=== PATIENT | female | born 1940 | race Caucasian/White ===

== ENCOUNTER → 2024-03-07 | Outpatient (CLI) | payer MEDICARE, BC ==
[2024-03-07 19:43] LABS: HCT 39.5 % (37.2-46.3); HGB 12.4 g/dL (12.0-15.0); MCHC 31.4 g/dL (32.0-37.0); MCV 92.3 FL (80.0-97.0); Mean Platelet Volume 10.6 FL (9.5-12.2); NRBC Per 100 WBC 0 X 10*3/uL (0.00-0.01); Platelet Count 140 X 10*3/uL (140-440); RBC 4.28 X 10*6/uL (4.10-5.20); RDW 12.9 % (11.5-14.5); WBC 6.64 X 10*3/uL (4.50-10.00)
[2024-03-07 20:06] LABS: ALT 13 U/L (8-44); AST 32 U/L (13-35); Albumin 3.9 g/dL (3.8-4.9); Albumin/Globulin Ratio 1.86 Ratio (1.60-3.17); Alkaline Phosphatase 46 U/L (41-126); BUN/Creat Ratio 14.46 Ratio (12.00-20.00); Blood Urea Nitrogen 18.8 mg/dL (9.0-27.0); Calcium 9.7 mg/dL (8.7-10.3); Carbon Dioxide 27.1 mmol/L (21.6-31.8); Chloride 102 mmol/L (96-109); Globulin 2.1 g/dL (1.6-3.3); Glucose 166 mg/dL (70-110); Potassium 3.8 mmol/L (3.5-5.5); Sodium 140 mmol/L (135-145); Total Bilirubin 0.6 mg/dL (0.3-1.2)
== END | disposition home or self-care (01) ==
LOC: LABWHC1 13:37
PROVIDERS: ATTEND Internal Medicine Interventional Cardiology
DX: I47.19 Other supraventricular tachycardia (principal)
CPT/HCPCS: 36415; 80053; 84443; 85027

== ENCOUNTER 2024-07-08 14:43 | Emergency (ER) | payer BC, MEDICARE ==
--- NOTE | 2024-07-08 15:21 | ED ---
General Adult HPI - General Chief complaint: Head Injury Stated complaint: Fall on thinners-head injury Time Seen by Provider: 07/08/24 14:49 Source: patient, RN notes reviewed Mode of arrival: wheelchair Limitations: no limitations - History of Present Illness Initial comments: 83-year-old female presents to the emergency department for evaluation of fall with head injury. The patient took a fall today hitting her head on an end table. She did not lose consciousness. She is on blood thinners. She denies any other injury. She has had a tetanus vaccine within the past 5 years. She is able to ambulate. She typically uses a walker at home. - Related Data Home Medications Medication Instructions Recorded Confirmed ALPRAZolam [Xanax] 0.25 mg PO TID PRN 07/27/15 07/27/15 Aspirin [Adult Low Dose Aspirin EC] 81 mg PO DAILY 07/27/15 07/27/15 Citalopram Hydrobromide [CeleXA] 10 mg PO DAILY 07/27/15 07/27/15 Ergocalciferol (Vitamin D2) 50,000 unit PO Q14D 07/27/15 07/27/15 [Drisdol] Fenofibrate 160 mg PO DAILY 07/27/15 07/27/15 Furosemide [Lasix] 20 mg PO DAILY 07/27/15 07/27/15 Gabapentin [Neurontin] 100 mg PO HS 07/27/15 07/27/15 Metoprolol Tartrate 25 mg PO BID 07/27/15 07/27/15 Pravastatin Sodium [Pravachol] 80 mg PO HS 07/27/15 07/27/15 Sennosides [Senokot] 8.6 mg PO DAILY PRN 07/27/15 07/27/15 Temazepam [Restoril] 15 mg PO HS PRN 07/27/15 07/27/15 traMADol HCL [Ultram] 50 mg PO TID PRN 07/27/15 07/27/15 Allergies Allergy/AdvReac Type Severity Reaction Status Date / Time seafood Allergy Dyspnea Uncoded 07/08/24 14:52 Review of Systems ROS Statement: Those systems with pertinent positive or pertinent negative responses have been documented in the HPI. ROS Other: All systems not noted in ROS Statement are negative. Past Medical History Past Medical History: Asthma, Cancer, Hyperlipidemia, Skin Disorder Additional Past Medical History / Comment(s): cluster migraine headaches, varicose veins, psoriasis, hx mar skylar syndrome, melanoma rt eye History of Any Multi-Drug Resistant Organisms: None Reported Past Surgical History: Cardiac Valve Replacement, Heart Catheterization Additional Past Surgical History / Comment(s): aortic and mitral valve replacements, melanoma rt eye (prosthesis rt eye), Past Anesthesia/Blood Transfusion Reactions: No Reported Reaction Past Psychological History: Anxiety, Panic Disorder Past Alcohol Use History: None Reported Past Drug Use History: None Reported - Past Family History Mother Family Medical History: Cancer Additional Family Medical History / Comment(s): cervical,breast General Exam Limitations: no limitations General appearance: alert, in no apparent distress Head exam: Present: other (Posterior scalp hematoma with overlying abrasion and laceration) Eye exam: Present: normal appearance, PERRL, EOMI. Absent: scleral icterus, conjunctival injection, periorbital swelling ENT exam: Present: normal exam, mucous membranes moist, TM's normal bilaterally, normal external ear exam Neck exam: Present: normal inspection, full ROM. Absent: tenderness, meningismus, lymphadenopathy Respiratory exam: Present: normal lung sounds bilaterally. Absent: respiratory distress, wheezes, rales, rhonchi, stridor Cardiovascular Exam: Present: regular rate, normal rhythm, normal heart sounds. Absent: systolic murmur, diastolic murmur, rubs, gallop, clicks Extremities exam: Present: normal inspection, full ROM, normal capillary refill. Absent: tenderness, pedal edema, joint swelling, calf tenderness Back exam: Present: normal inspection Neurological exam: Present: alert, oriented X3, CN II-XII intact Psychiatric exam: Present: normal affect, normal mood Skin exam: Present: warm, dry, normal color, abrasion, other. Absent: intact, rash Course Vital Signs 07/08/24 07/08/24 07/08/24 14:48 15:48 17:15 Temperature 97.9 F 98.1 F 98.0 F Pulse Rate 83 75 72 Respiratory 18 20 18 Rate Blood Pressure 134/71 126/79 O2 Sat by Pulse 97 98 99 Oximetry Procedures - Laceration Laceration #1 Consent Obtained: verbal consent Indication: laceration Site: scalp Size (cm): 1 Description: linear Depth: simple, single layer Type of Sutures: other ([place]) Size of Sutures: other Number of Sutures: 3 Technique: other ([place]) Patient Tolerated Procedure: well, no complications Medical Decision Making - Medical Decision Making Was pt. sent in by a medical professional or institution (, KELSIE, SAVINGS COUNSELOR, urgent care, hospital, or halfway...) When possible be specific @ -No Did you speak to anyone other than the patient for history (EMS, parent, family, police, friend...)? What history was obtained from this source @ -Patient's provided some history of his patient Did you review nursing and triage notes (agree or disagree)? Why? @ -I reviewed and agree with nursing and triage notes Were old charts reviewed (outside hosp., previous admission, EMS record, old EKG, old radiological studies, urgent care reports/EKG's, halfway records)? Report findings @ -No old charts were reviewed Differential Diagnosis (chest pain, altered mental status, abdominal pain women, abdominal pain men, vaginal bleeding, weakness, fever, dyspnea, syncope, headache, dizziness, GI bleed, back pain, seizure, CVA, palpatations, mental health, musculoskeletal)? @ -Fall, head injury, intracranial hemorrhage, laceration, abrasion, this list is not all inclusive EKG interpreted by me (3pts min.). @ -None X-rays interpreted by me (1pt min.). @ -None done CT interpreted by me (1pt min.). @ -CT of the brain and C-spine revealed no evidence of acute intracranial process, no acute C-spine fracture or traumatic malalignment U/S interpreted by me (1pt. min.). @ -None done What testing was considered but not performed or refused? (CT, X-rays, U/S, labs)? Why? @ -None What meds were considered but not given or refused? Why? @ -None Did you discuss the management of the patient with other professionals (professionals i.e. , KELSIE, SAVINGS COUNSELOR, lab, RT, psych nurse, social service director, chief wharfinger, teacher, bsa/aml compliance officer, case coordinator)? Give summary @ -No Was smoking cessation discussed for >3mins.? @ -No Was critical care preformed (if so, how long)? @ -No Were there social determinants of health that impacted care today? How? (Homelessness, low income, unemployed, alcoholism, drug addiction, t ransportation, low edu. Level, literacy, decrease access to med. care, halfway, rehab)? @ -No Was there de-escalation of care discussed even if they declined (Discuss DNR or withdrawal of care, Hospice)? DNR status @ -No What co-morbidities impacted this encounter? (DM, HTN, Smoking, COPD, CAD, Cancer, CVA, ARF, Chemo, Hep., AIDS, mental health diagnosis, sleep apnea, morbid obesity)? @ -None Was patient admitted / discharged? Hospital course, mention meds given and route, prescriptions, significant lab abnormalities, going to OR and other pertinent info. @ -Discharge. Patient presented the emergency department for fall with head injury on blood thinners. The patient was called as a code coag in triage. Patient underwent CT of the brain and C-spine revealing no acute intracranial process, no acute C-spine fracture or traumatic malalignment. Patient has a laceration to the posterior scalp which was cleaned and repaired with jackie. Advised on wound care and removal time. The patient and her understand and agree with plan. Patient stable at time of discharge. Case discussed with Dr. Hernandez Undiagnosed new problem with uncertain prognosis? @ -No Drug Therapy requiring intensive monitoring for toxicity (Heparin, Nitro, Insulin, Cardizem)? @ -No Were any procedures done? @ -No Diagnosis/symptom? @ -Fall, head injury, laceration Acute, or Chronic, or Acute on Chronic? @ -Acute Uncomplicated (without systemic symptoms) or Complicated (systemic symptoms)? @ -Uncomplicated Side effects of treatment? @ -No Exacerbation, Progression, or Severe Exacerbation? @ -No Poses a threat to life or bodily function? How? (Chest pain, [place], MA, pneumonia, PE, COPD, DKA, ARF, appy, cholecystitis, CVA, Diverticulitis, Homicidal, Suicidal, threat to staff... and all critical care pts) @ -No Disposition Clinical Impression: Fall, Scalp hematoma, Laceration Disposition: HOME SELF-CARE Condition: Stable Instructions (If sedation given, give patient instructions): Concussion (ED), Staple Care (ED) Additional Instructions: Please follow-up with your doctor. Return to the emergency department for new or worsening symptoms. Is patient prescribed a controlled substance at d/c from ED?: No Referrals: Larry Lopez MD [Primary Care Provider] - 1-2 days
--- NOTE | 2024-07-08 15:43 | CT ---
EXAMINATION TYPE: CT brain cspine wo con CT DLP: 1345.6 mGycm, Automated exposure control for dose reduction was used. DATE OF EXAM: 07/08/2024 3:29 PM COMPARISON: None.. CLINICAL INDICATION:Female, 83 years old with history of Fall head trauma blood thinners; Fall., pain TECHNIQUE: Brain: Multiple axial CT images of the brain were obtained without IV contrast. Cspine: Axial CT images from the skull base to the inferior aspect of T2 we obtained without intraven ous contrast. Coronal and sagittal reformatted images were also reviewed. FINDINGS: Brain: Extra-axial spaces: No abnormal extra-axial fluid collections. Ventricular system: Within normal limits Cerebral parenchyma: Cerebral atrophy. No acute intraparenchymal hemorrhage or mass effect. The mckeon -white junction is well differentiated. Scattered hypoattenuating areas are seen within the periventr icular white matter. Nonspecific bilateral basal ganglia calcifications. Cerebellum: Unremarkable. Mass effect: No evidence of midline shift. Intracranial vasculature: Atherosclerotic calcifications of the intracranial vessels. Soft tissues: Small right posterior parietal scalp hematoma measuring up to 6 mm in thickness. Calvarium/osseous structures: No depressed skull fracture. Paranasal sinuses and mastoid air cells: Clear. Visualized orbits: Left aphakia. Postsurgical changes with right globe prosthesis. Cervical spine: Fracture: None. Osseous structures: Multilevel degenerative disc disease changes with endplate spurring and disc oste ophyte complex's. Multilevel facet arthropathy. Sternotomy wires. Vertebral alignment: Degenerative grade 1 anterolisthesis of C7 on T1. Spinal canal/Neural Foramina: Disc osteophyte complexes at C3-C4, C4-C5, C5-C6, and C6-C7 with at [address] mild spinal canal stenosis. Pannus formation involving C1-C2. Facet joint uncovertebral joint arth ropathy scattered throughout the cervical spine with varying degrees of neural foraminal stenosis. Neck soft tissues: Prevertebral soft tissues are within normal limits. Other: The airway is patent. The lung apices are clear. Bilateral carotid bulb calcifications with ri ght sided retroperitoneal course. Aneurysmal dilatation of the visualized ascending thoracic aorta me asuring up to 4.3 cm. Bovine aortic arch. IMPRESSION: 1. No acute intracranial process. 2. Nonspecific white matter changes, likely secondary to chronic small vessel ischemic disease. 3. Acute small right posterior parietal scalp hematoma. 4. No evidence of cervical spine fracture. 5. Moderate multilevel degenerative disc disease. 6. Ascending thoracic aortic aneurysm measuring up to 4.3 cm. [facility], , 07/08/2024 3:41 PM
[2024-07-08 17:16] VITALS: BP 126/79; PULSE 72; RESP 18; TEMP 98
== END 2024-07-08 14:51 | disposition home or self-care (01) ==
LOC: EC 14:43
DX: S01.01XA Laceration without foreign body of scalp, initial encounter (principal); Z79.82 Long term (current) use of aspirin; Z91.013 Allergy to seafood; W18.30XA Fall on same level, unspecified, initial encounter
CPT/HCPCS: 12001; 70450; 72125; 99283

== ENCOUNTER 2024-09-18 14:07 | Inpatient (IN) | payer MEDICARE ==
--- NOTE | 2024-09-18 14:38 | ED ---
Arrhythmia/Palpitations HPI - General Chief Complaint: Arrhythmia/Palpitations Stated Complaint: Abd Labs Time Seen by Provider: 09/18/24 14:11 Source: patient, family, RN notes reviewed, old records reviewed Mode of arrival: wheelchair Limitations: no limitations - History of Present Illness Initial Comments: This is a 84-year-old female to ER with chest pain and shortness of breath. Patient is sent in by primary care where she went for similar symptoms, patient was found to have severely elevated heart rate and sent to the ER, patient presents by EMS for elevated heart rate feeling lightheaded dizzy and weak, without current chest pain does complain of shortness of breath feels like her heart is racing MD Complaint: rapid heart beat, "heart racing", palpitations, atrial fibrillation -: unknown Context: occurred during rest Arrhythmia History: atrial fibrillation Associated Symptoms: chest pain, shortness of breath, near-syncope Treatments Prior to Arrival: other (0) - Related Data Home Medications Medication Instructions Recorded Confirmed Citalopram Hydrobromide [CeleXA] 10 mg PO DAILY 07/27/15 09/18/24 Fenofibrate 160 mg PO DAILY 07/27/15 09/18/24 Furosemide [Lasix] 20 mg PO BID 07/27/15 09/18/24 Metoprolol Tartrate 25 mg PO BID 07/27/15 09/18/24 Pravastatin Sodium [Pravachol] 80 mg PO HS 07/27/15 09/18/24 Apixaban [Eliquis] 2.5 mg PO BID 09/18/24 09/18/24 Pantoprazole Sodium [Protonix] 40 mg PO DAILY 09/18/24 09/18/24 Potassium Chloride [Klor-Con M10] 10 meq PO DAILY 09/18/24 09/18/24 Tolterodine ER [Detrol LA] 4 mg PO DAILY 09/18/24 09/18/24 allopurinoL 100 mg PO DAILY 09/18/24 09/18/24 traZODone HCL 100 mg PO HS 09/18/24 09/18/24 Allergies Allergy/AdvReac Type Severity Reaction Status Date / Time seafood Allergy Dyspnea Uncoded 09/18/24 17:16 Review of Systems ROS Statement: Those systems with pertinent positive or pertinent negative responses have been documented in the HPI. ROS Other: All systems not noted in ROS Statement are negative. Past Medical History Past Medical History: Asthma, Cancer, Hyperlipidemia, Skin Disorder Additional Past Medical History / Comment(s): cluster migraine headaches, varicose veins, psoriasis, hx mar skylar syndrome, melanoma rt eye History of Any Multi-Drug Resistant Organisms: None Reported Past Surgical History: Cardiac Valve Replacement, Heart Catheterization Additional Past Surgical History / Comment(s): aortic and mitral valve replacements, melanoma rt eye (prosthesis rt eye), Past Anesthesia/Blood Transfusion Reactions: No Reported Reaction Past Psychological History: Anxiety, Panic Disorder Smoking Status: Never smoker Past Alcohol Use History: None Reported Past Drug Use History: None Reported - Past Family History Mother Family Medical History: Cancer Additional Family Medical History / Comment(s): cervical,breast General Exam Limitations: no limitations General appearance: alert, in no apparent distress Head exam: Present: atraumatic, normocephalic, normal inspection Eye exam: Present: normal appearance, PERRL, EOMI. Absent: scleral icterus, conjunctival injection, periorbital swelling ENT exam: Present: normal exam, mucous membranes moist Neck exam: Present: normal inspection. Absent: tenderness, meningismus, lymphadenopathy Respiratory exam: Present: normal lung sounds bilaterally. Absent: respiratory distress, wheezes, rales, rhonchi, stridor Cardiovascular Exam: Present: tachycardia, irregular rhythm, normal heart sounds. Absent: systolic murmur, diastolic murmur, rubs, gallop, clicks GI/Abdominal exam: Present: soft, normal bowel sounds. Absent: distended, tenderness, guarding, rebound, rigid Extremities exam: Present: normal inspection, full ROM, normal capillary refill. Absent: tenderness, pedal edema, joint swelling, calf tenderness Back exam: Present: normal inspection Neurological exam: Present: alert, oriented X3, CN II-XII intact Psychiatric exam: Present: normal affect, normal mood Skin exam: Present: warm, dry, intact, normal color. Absent: rash Course Vital Signs 09/18/24 09/18/24 09/18/24 14:12 14:38 14:47 Temperature 97.3 F L Pulse Rate 40 L 149 H Pulse Rate [ 149 H Cloth Dye Range Operator ] Respiratory 18 Rate Blood Pressure 90/37 85/62 O2 Sat by Pulse 95 93 L Oximetry 09/18/24 09/18/24 09/18/24 15:40 16:18 16:30 Temperature Pulse Rate 146 H 146 H 146 H Pulse Rate [ Cloth Dye Range Operator ] Respiratory 17 Rate Blood Pressure 83/60 84/63 91/63 O2 Sat by Pulse 94 L 95 Oximetry 09/18/24 09/18/24 09/18/24 16:49 17:00 17:30 Temperature Pulse Rate 115 H 107 H 95 Pulse Rate [ Cloth Dye Range Operator ] Respiratory 17 Rate Blood Pressure 96/66 88/66 97/60 O2 Sat by Pulse 92 L 94 L Oximetry 09/18/24 09/18/24 09/18/24 18:00 18:45 20:52 Temperature 98.6 F Pulse Rate 70 69 69 Pulse Rate [ Cloth Dye Range Operator ] Respiratory 18 17 19 Rate Blood Pressure 98/57 110/49 94/66 O2 Sat by Pulse 93 L 93 L 93 L Oximetry - Reevaluation(s) Reevaluation #1: Medical records reviewed Reevaluation #2: Patient's symptoms mildly improving in the ER blood pressure and heart rate Reevaluation #3: Patient informed results questions answered Reevaluation #4: Was pt. sent in by a medical professional or institution (, PA, INSTRUMENT TECHNICIAN HELPER, urgent care, hospital, or halfway...) When possible be specific @ -Yes patient was sent by PCP Did you speak to anyone other than the patient for history (EMS, parent, family, police, friend...)? What history was obtained from this source @ -No Did you review nursing and triage notes (agree or disagree)? Why? @ -I reviewed and agree with nursing and triage notes Were old charts reviewed (outside hosp., previous admission, EMS record, old EKG, old radiological studies, urgent care reports/EKG's, halfway records)? Report findings @ -Yes old charts reviewed and noncontributory Differential Diagnosis (chest pain, altered mental status, abdominal pain women, abdominal pain men, vaginal bleeding, weakness, fever, dyspnea, syncope, headache, dizziness, GI bleed, back pain, seizure, CVA, palpatations, mental hea lth, musculoskeletal)? @ -Yes as above EKG interpreted by me (3pts min.). @ -As above X-rays interpreted by me (1pt min.). @ -None CT interpreted by me (1pt min.). @ -None U/S interpreted by me (1pt. min.). @ -None done What testing was considered but not performed or refused? (CT, X-rays, U/S, lab s)? Why? @ -None What meds were considered but not given or refused? Why? @ -None Did you discuss the management of the patient with other professionals (professionals i.e. , PA, INSTRUMENT TECHNICIAN HELPER, lab, RT, psych nurse, social work therapist, working foreman, teacher, pharmaceutical officer, therapeutic case manager)? Give summary @ -No Was smoking cessation discussed for >3mins.? @ -No Was critical care preformed (if so, how long)? @ -Yes31 Were there social determinants of health that impacted care today? How? (Homelessness, low income, unemployed, alcoholism, drug addiction, transportation, low edu. Level, literacy, decrease access to med. care, correction, rehab)? @ -No Was there de-escalation of care discussed even if they declined (Discuss DNR or withdrawal of care, Hospice)? DNR status @ -No What co-morbidities impacted this encounter? (DM, HTN, Smoking, COPD, CAD, Cancer, CVA, ARF, Chemo, Hep., AIDS, mental health diagnosis, sleep apnea, morbid obesity)? @ -None Was patient admitted / discharged? Hospital course, mention meds given and route, prescriptions, significant lab abnormalities, going to OR and other pertinent info. @ - 84 female sent from PCP for elevated heart rate, patient found in A-fib with RVR, will admit for rate control cardiology consult evaluation, treatment. Admitted Undiagnosed new problem with uncertain prognosis? @ -No Drug Therapy requiring intensive monitoring for toxicity (Heparin, Nitro, Insulin, Cardizem)? @ -No Were any procedures done? @ -No Diagnosis/symptom? @ -Atrial fibrillation with RVR, palpitations and chest pain Acute, or Chronic, or Acute on Chronic? @ -Acute Uncomplicated (without systemic symptoms) or Complicated (systemic symptoms)? @ -Complicated Side effects of treatment? @ -No Exacerbation, Progression, or Severe Exacerbation? @ -Exacerbation Poses a threat to life or bodily function? How? (Chest pain, [place], [place], pneumonia, PE, COPD, DKA, ARF, appy, cholecystitis, CVA, Diverticulitis, Homicidal, Suicidal, threat to staff... and all critical care pts) @ -Yes with arrhythmia Reevaluation #5: Differential Palpitations Ventricular arrhythmias, atrial arrhythmias, myocardial infarction, anemia, thyrotoxicosis, electrolyte imbalance, hypokalemia, pulmonary embolism, pulmonary disease, drugs, alcohol, anxiety, stress.... This is not meant to be an all-inclusive list. Differential Weakness: Hypoglycemia, shock, sepsis, hyponatremia, anemia, infection, [place], ETOH, adverse medicine reaction, overdose, stroke, this is not meant to be an all-inclusive list. - Consultations Consultation #1: Spoke w admitting physicians reviewed admit this patient EKG Findings - EKG Comments: EKG Findings:: EKG is sinus tachycardia 150 OK 148 QRS 129 QTc 440 - EKG Results: EKG: interpreted by [facility] Medical Decision Making - Medical Decision Making 84 female sent from PCP for elevated heart rate, patient found in A-fib with RVR , will admit for rate control cardiology consult evaluation, treatment. - Lab Data Result diagrams: 09/20/24 06:19 09/20/24 06:19 Lab Results 09/18/24 09/18/24 09/18/24 Range/Units 14:58 14:58 14:58 WBC 13.28 H (4.50-10.00) 10*3/uL RBC 4.77 (4.10-5.20) 10*6/uL Hgb 15.0 (12.0-15.0) g/dL Hct 43.0 (37.2-46.3) % MCV 90.1 (80.0-97.0) fL MCH 31.4 (27.0-32.0) pg MCHC 34.9 (32.0-37.0) g/dL Plt Count 160 (140-440) 10*3/uL MPV 10.2 (9.5-12.2) fL Immature Gran % (Auto) 0.5 % Neutrophils % 76.3 % Lymphocytes % 15.2 % Monocytes % 6.9 % Eosinophils % 0.6 % Basophils % 0.5 % Immature Gran # 0.07 H (0.00-0.04) 10*3/uL Neutrophils # 10.14 H (1.80-7.70) 10*3/uL Lymphocytes # 2.02 (0.90-5.00) 10*3/uL Monocytes # 0.91 (0.20-1.00) 10*3/uL Eosinophils # 0.08 (0.04-0.35) 10*3/uL Basophils # 0.06 (0.00-0.10) 10*3/uL PT 13.3 H (10.0-12.5) sec INR 1.2 H (<1.2) APTT 24.8 (22.0-30.0) sec Sodium 137 (137-145) mmol/L Potassium 4.4 (3.5-5.1) mmol/L Chloride 102 (98-107) mmol/L Carbon Dioxide 20 L (22-30) mmol/L Anion Gap 15 mmol/L BUN 21 H (7-17) mg/dL Creatinine 1.07 H (0.52-1.04) mg/dL Est GFR (CKD-EPI)AfAm 55 (>60 ml/min/1.73 sqM) Est GFR (CKD-EPI)NonAf 48 (>60 ml/min/1.73 sqM) Glucose 140 H (74-99) mg/dL Lactic Ac Sepsis Rflx Plasma Lactic Acid Rich (0.7-2.0) mmol/L Calcium 10.2 (8.4-10.2) mg/dL Phosphorus 6.2 H (2.5-4.5) mg/dL Magnesium 1.6 (1.6-2.3) mg/dL Total Bilirubin 2.0 H (0.2-1.3) mg/dL AST 50 H (14-36) U/L ALT 18 (4-34) U/L Alkaline Phosphatase 52 (38-126) U/L Troponin I (0.000-0.034) ng/mL NT-Pro-B Natriuret Pep 2260 pg/mL Total Protein 6.5 (6.3-8.2) g/dL Albumin 4.2 (3.5-5.0) g/dL TSH 7.270 H (0.465-4.680) mIU/L Free T4 2.19 (0.78-2.19) ng/dL 09/18/24 09/18/24 09/18/24 Range/Units 14:58 14:58 15:25 WBC (4.50-10.00) 10*3/uL RBC (4.10-5.20) 10*6/uL Hgb (12.0-15.0) g/dL Hct (37.2-46.3) % MCV (80.0-97.0) fL MCH (27.0-32.0) pg MCHC (32.0-37.0) g/dL Plt Count (140-440) 10*3/uL MPV (9.5-12.2) fL Immature Gran % (Auto) % Neutrophils % % Lymphocytes % % Monocytes % % Eosinophils % % Basophils % % Immature Gran # (0.00-0.04) 10*3/uL Neutrophils # (1.80-7.70) 10*3/uL Lymphocytes # (0.90-5.00) 10*3/uL Monocytes # (0.20-1.00) 10*3/uL Eosinophils # (0.04-0.35) 10*3/uL Basophils # (0.00-0.10) 10*3/uL PT (10.0-12.5) sec INR (<1.2) APTT (22.0-30.0) sec Sodium (137-145) mmol/L Potassium (3.5-5.1) mmol/L Chloride (98-107) mmol/L Carbon Dioxide (22-30) mmol/L Anion Gap mmol/L BUN (7-17) mg/dL Creatinine (0.52-1.04) mg/dL Est GFR (CKD-EPI)AfAm (>60 ml/min/1.73 sqM) Est GFR (CKD-EPI)NonAf (>60 ml/min/1.73 sqM) Glucose (74-99) mg/dL Lactic Ac Sepsis Rflx Y Plasma Lactic Acid Rich 3.9 H* (0.7-2.0) mmol/L Calcium (8.4-10.2) mg/dL Phosphorus (2.5-4.5) mg/dL Magnesium (1.6-2.3) mg/dL Total Bilirubin (0.2-1.3) mg/dL AST (14-36) U/L ALT (4-34) U/L Alkaline Phosphatase (38-126) U/L Troponin I 0.019 (0.000-0.034) ng/mL NT-Pro-B Natriuret Pep pg/mL Total Protein (6.3-8.2) g/dL Albumin (3.5-5.0) g/dL TSH (0.465-4.680) mIU/L Free T4 (0.78-2.19) ng/dL - EKG Data -: EKG Interpreted by Me (EKG repeated sinus 70 OK 242 QRS 109 QTc 462) - Radiology Data Radiology results: report reviewed (Chest x-ray is negative for acute disease), image reviewed Critical Care Time Critical Care Time: Yes Total Critical Care Time: 31 Disposition Clinical Impression: Palpitations, Atrial tachycardia, Atrial flutter Disposition: ADMITTED IP TO THIS HOSP Condition: Fair Is patient prescribed a controlled substance at d/c from ED?: No Time of Disposition: 15:30
[2024-09-18] MEDS: SODIUM CHLORIDE 0.9% 1,000 ML IV SCH (14:52)
[2024-09-18] MEDS: SODIUM CHLORIDE 0.9% 1,000 ML IV ONE (14:52)
[2024-09-18] MEDS: MAGNESIUM SULFATE-D5W PMX 1 GM in DEXTROSE/WATER 1 100ML.BAG IVPB ONE ×2 (14:52→17:18)
[2024-09-18 15:04] LABS: Basophils # (A) 0.06 10*3/uL (0.00-0.10); Basophils % (A) 0.5 %; Eosinophils # (A) 0.08 10*3/uL (0.04-0.35); Eosinophils % (A) 0.6 %; HCT 43.0 % (37.2-46.3); HGB 15.0 g/dL (12.0-15.0); Lymphocytes # (A) 2.02 10*3/uL (0.90-5.00); Lymphocytes % (A) 15.2 %; MCH 31.4 pg (27.0-32.0); MCHC 34.9 g/dL (32.0-37.0); MCV 90.1 fL (80.0-97.0); Monocytes # (A) 0.91 10*3/uL (0.20-1.00); Monocytes % (A) 6.9 %; Neutrophils # (A) 10.14 10*3/uL (1.80-7.70); Neutrophils % (A) 76.3 %; Platelet Count 160 10*3/uL (140-440); RBC 4.77 10*6/uL (4.10-5.20); RDW 13.2 % (11.5-14.5); WBC 13.28 10*3/uL (4.50-10.00)
[2024-09-18 15:13] LABS: INR 1.2 (<1.2); Partial Thromboplastin Time 24.8 sec (22.0-30.0); Prothrombin Time 13.3 sec (10.0-12.5)
[2024-09-18 15:21] LABS: ALT 18 U/L (4-34); AST 50 U/L (14-36); African American GFR (CKD) 55 (>60 ml/min/1.73 sqM); Albumin 4.2 g/dL (3.5-5.0); Alkaline Phosphatase 52 U/L (38-126); Anion Gap 15 mmol/L; Blood Urea Nitrogen 21 mg/dL (7-17); Calcium 10.2 mg/dL (8.4-10.2); Carbon Dioxide 20 mmol/L (22-30); Chloride 102 mmol/L (98-107); Glucose 140 mg/dL (74-99); Magnesium 1.6 mg/dL (1.6-2.3); Non-African American GFR(CKD) 48 (>60 ml/min/1.73 sqM); Potassium 4.4 mmol/L (3.5-5.1); Sodium 137 mmol/L (137-145); Total Protein 6.5 g/dL (6.3-8.2)
[2024-09-18 15:29] LABS: NT-Pro-B-Type Natriuretic Pept 2260 pg/mL
[2024-09-18] MEDS ORDERED: ONDANSETRON 4 MG/2 ML VIAL IVP PRN (15:41)
[2024-09-18] MEDS ORDERED: NALOXONE 0.4 MG/ML 1 ML VIAL IV PRN (15:41)
--- NOTE | 2024-09-18 15:58 | XR ---
EXAMINATION TYPE: XR chest 1V portable DATE OF EXAM: 09/18/2024 3:53 PM COMPARISON: None. CLINICAL INDICATION: Female, 83 years old with history of sob, TECHNIQUE: XR chest 1V portable views of the chest are obtained. FINDINGS: Demonstrated are scattered senescent parenchymal change. There is no evidence for focal infiltrate. The heart is enlarged. Hilar and mediastinal structures are within normal limits. Degenerative changes are seen of the dorsal spine. IMPRESSION: 1. Chronic changes without evidence for acute pulmonary disease. [facility], , 09/18/2024 3:55 PM
[2024-09-18 16:22] LABS: T4, Free (Free Thyroxine) 2.19 ng/dL (0.78-2.19)
[2024-09-18] MEDS: METOPROLOL TARTRATE 5 MG/5 ML VIAL IVP STA (16:37)
[2024-09-18] MEDS: PANTOPRAZOLE 40 MG/10 ML VIAL IV SCH (16:37)
[2024-09-18] MEDS ORDERED: HEPARIN SODIUM 1,000 UN/ML (10ML VL) IV PRN (17:01)
[2024-09-18] MEDS: SODIUM CHLORIDE 0.9% 500 ML 500 ML IV ONE ×2 (17:09→18:05)
[2024-09-18 17:21] LABS: Bacteria,Urine Many /hpf; Bilirubin,Urine Negative (Negative); Blood,Urine Trace (Negative); Color,Urine Yellow; Glucose,Urine (UA) Negative (Negative); Hyaline Casts,Urine 5 /lpf (0-2); Ketones,Urine Negative (Negative); Leukocyte Esterase,Urine Large (Negative); Mucus,Urine Rare /hpf; Nitrite,Urine Negative (Negative); PH, Urine 5.5 (5.0-8.0); Protein,Urine Trace (Negative); RBC,Urine 3 /hpf (0-5); Specific Gravity,Urine 1.011 (1.001-1.035); Squamous Epithelial Cell,Urine 8 /hpf (0-4); Urobilinogen,Urine <2.0 mg/dL (<2.0); WBC,Urine 160 /hpf (0-5)
[2024-09-18] MEDS: DILTIAZEM 5 MG/ML 5 ML VIAL IVP STA (17:35)
[2024-09-18] MEDS: DEXTROSE 5%-0.45% NACL 1,000 ML IV ONE (18:06)
[2024-09-18] MEDS: MAGNESIUM OXIDE 400 MG TAB PO STA (18:08)
[2024-09-18] MEDS: HEPARIN SODIUM,PORCINE/D5W 25,000 UNIT in EMPTY BAG 1 BAG IV SCH (18:48)
[2024-09-18] MEDS: HEPARIN SODIUM 1,000 UN/ML (10ML VL) IV ONE (18:50)
--- NOTE | 2024-09-19 01:20 | HP ---
HISTORY AND PHYSICAL CHIEF COMPLAINT: Weakness and diminished p.o. intake. 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 The patient is not eating well. The patient was evaluated in the physician's office and was found to have tachycardia and the patient was referred to [facility]. The EKG showed possible atrial flutter versus atrial fibrillation with a fast ventricular rate. The patient has been admitted for further evaluation and treatment. Wide- complex QRS, tachycardia suspected. PAST MEDICAL HISTORY: History of asthma, hyperlipidemia, history of irregular heartbeat previously postop, rest of the history and chart is noted. HOME MEDICATIONS: Ultram. Doses and rest medications noted. ALLERGIES: Seafood. FAMILY HISTORY: History of cervical cancer. SOCIAL HISTORY: No history of smoking or alcohol. REVIEW OF SYSTEMS: A 14-point review of systems negative except as mentioned earlier. PHYSICAL EXAMINATION: VITAL SIGNS: Pulse is 140, blood pressure 91/67, and respirations 17. HEENT: Conjunctivae normal. CARDIOVASCULAR: She was tachycardic. RESPIRATIONS: Few scattered rhonchi and crackles. ABDOMEN: Soft, nontender. LEGS: No edema. NERVOUS SYSTEM: No focal deficits. LABORATORY DATA: Creatinine is 1.07 and lactic acid 3.9. ASSESSMENT: 1. Tachycardia, possibly atrial flutter fibrillation versus wide-complex QRS tachycardia. 2. History of asthma. 3. Hyperlipidemia. 4. History of cardiac valve replacement, history of cardiac catheterization, history of Jones-Nabil Syndrome, history of anxiety, panic disorder. RECOMMENDATIONS AND DISCUSSION: This 83-year-old woman presented with multiple complex medical issues. We will monitor the patient closely. Continue the current management and symptomatic treatment otherwise Cardiology consultation. Guarded prognosis because of multiple complex medical issues and further recommendations to follow. See orders for details. We will check a TSH and lytes also. MMODL / IJN: [id number] /
[2024-09-19 07:51] LABS: Basophils # (A) 0.03 10*3/uL (0.00-0.10); Basophils % (A) 0.5 %; Eosinophils # (A) 0.05 10*3/uL (0.04-0.35); Eosinophils % (A) 0.8 %; HCT 32.7 % (37.2-46.3); Lymphocytes # (A) 1.65 10*3/uL (0.90-5.00); Lymphocytes % (A) 26.7 %; MCH 31.4 pg (27.0-32.0); MCHC 33.9 g/dL (32.0-37.0); MCV 92.4 fL (80.0-97.0); Monocytes # (A) 0.49 10*3/uL (0.20-1.00); Monocytes % (A) 7.9 %; Neutrophils # (A) 3.93 10*3/uL (1.80-7.70); Neutrophils % (A) 63.5 %; Platelet Count 111 10*3/uL (140-440); RBC 3.54 10*6/uL (4.10-5.20); RDW 13.2 % (11.5-14.5); WBC 6.19 10*3/uL (4.50-10.00)
[2024-09-19 08:27] LABS: HGB 11.1 g/dL (12.0-15.0)
[2024-09-19 09:02] LABS: ALT 20 U/L (4-34); AST 48 U/L (14-36); African American GFR (CKD) 73 (>60 ml/min/1.73 sqM); Albumin 2.6 g/dL (3.5-5.0); Alkaline Phosphatase 36 U/L (38-126); Anion Gap 6 mmol/L; Blood Urea Nitrogen 19 mg/dL (7-17); Calcium 8.8 mg/dL (8.4-10.2); Carbon Dioxide 24 mmol/L (22-30); Chloride 105 mmol/L (98-107); Glucose 107 mg/dL (74-99); Magnesium 2.1 mg/dL (1.6-2.3); Non-African American GFR(CKD) 64 (>60 ml/min/1.73 sqM); Potassium 3.2 mmol/L (3.5-5.1); Sodium 135 mmol/L (137-145); Total Protein 4.7 g/dL (6.3-8.2)
[2024-09-19] MEDS: METOPROLOL TARTRATE 25 MG TAB PO SCH (10:14)
[2024-09-19] MEDS: APIXABAN 2.5 MG TABLET PO SCH (10:15)
[2024-09-19] MEDS: FUROSEMIDE 20 MG TAB PO SCH (10:15)
--- NOTE | 2024-09-19 10:30 | P.CRDCN ---
History of Present Illness Consult date: 09/19/24 Consult reason: atrial fibrillation History of present illness: This is an 83-year-old female patient of Dr. Bates with past medical history of atrial tachycardia, aortic valve replacement and mitral valve replacement, CAD, mixed hyperlipidemia, diabetes mellitus type 2. We have been asked to evaluate the patient for A-fib with RVR. Patient states that she went to her regularly scheduled appointment with Dr. Lopez and was found to be tachycardic in the 150s and was sent into the hospital for further evaluation. Patient's states that he is also concerned as she has not been eating and drinking and has no strength. Blood pressure 91/48, heart rate 80, pulse ox 95% on room air. Patient is status post Cardizem bolus 15 mg IV push, IV Lopressor 5 mg, heparin drip, magnesium replacement, 2 and half liters IV fluid bolus. Patient states that she is feeling better today. -EKG: Atrial tachycardia versus typical atrial flutter 150 bpm, #2 sinus rhythm at 70 bpm. -Chest x-ray: Chronic changes without acute process. -Laboratory studies: Troponin 0.019, 0.036, 0.096. WBC initially 13.2 on repeat 6.1, hemoglobin 9.1, sodium 135, potassium 3.2, BUN 19 creatinine 0.84. proBNP 2260. TSH 7.27 with normal free T4 of 2.19. Urinalysis possible UTI. -Home cardiac medications: Eliquis 2.5 mg twice daily, fenofibrate 160 mg daily, Lasix 20 mg twice daily, metoprolol tartrate 25 mg twice daily, potassium chloride 10 mill equivalents daily, pravastatin 80 mg at bedtime. -Cardiac catheterization performed 2011 revealed EF 42%, 40% proximal RCA, 4+ aortic and mitral valve regurgitation. -Cardiovascular surgery tissue AVR and tissue MVR 2011 -Echocardiogram performed 03/23/2024 revealed EF 52%, moderate TR, bioprosthetic aortic and mitral valve replacement. -Event monitor February 2024 revealed sinus rhythm with episodes of atrial tachycardia 2:1. -Lexiscan stress test performed 2022 revealed normal EF, normal study. Review Of Systems: At the time of my exam: CONSTITUTIONAL: Denies fever or chills. HEENT: Denies blurred vision, vision changes, or eye pain. Denies hemoptysis CARDIOVASCULAR: Denies chest pain. Denies orthopnea. Denies PND. Denies palpitations RESPIRATORY: Denies shortness of breath. GASTROINTESTINAL: Denies abdominal pain. Denies nausea or vomiting. HEMATOLOGIC: Denies bleeding disorders. GENITOURINARY: Denies any blood in urine. SKIN: Denies puritis. Denies rash. Physical examination: Gen: This is an 83-year-old female in no acute distress VS: reviewed HEENT: Head is atraumatic, normocephalic. Pupils equal, round. Sclerae is anicteric. NECK: Supple. No JVD. LUNGS: Clear to auscultation. No wheezes or rhonchi. No intercostal retractions. HEART: Regular rate and rhythm. 4/6 systolic ejection murmur at the right sternal border and 2/6 systolic murmur at the apex. ABDOMEN: Soft No tenderness. EXTREMITIES: No pedal edema. No calf tenderness. NEUROLOGICAL: Patient is awake, alert and oriented x3. Assessment: Atrial tachycardia versus typical atrial flutter Elevated troponin secondary to tachycardia UTI Aortic valve replacement and mitral valve replacement CAD, nonobstructive Mixed hyperlipidemia Diabetes mellitus type 2 Plan: Resume patient's home cardiac medications Discontinue heparin drip and resume Eliquis No need to repeat echocardiogram as this was done in March Continue telemetry monitoring Further recommendations to follow based upon clinical course Thank you kindly for this consultation. Nurse practitioner note has been reviewed, I agree with documented findings and plan of care. Patient was seen and examined. Past Medical History Past Medical History: Asthma, Cancer, Hyperlipidemia, Skin Disorder Additional Past Medical History / Comment(s): cluster migraine headaches, varicose veins, psoriasis, hx mar skylar syndrome, melanoma rt eye History of Any Multi-Drug Resistant Organisms: None Reported Past Surgical History: Cardiac Valve Replacement, Heart Catheterization Additional Past Surgical History / Comment(s): aortic and mitral valve replacements, melanoma rt eye (prosthesis rt eye), Past Anesthesia/Blood Transfusion Reactions: No Reported Reaction Past Psychological History: Anxiety, Panic Disorder Smoking Status: Never smoker Past Alcohol Use History: None Reported Past Drug Use History: None Reported - Past Family History Mother Family Medical History: Cancer Additional Family Medical History / Comment(s): cervical,breast Medications and Allergies Home Medications Medication Instructions Recorded Confirmed Type Citalopram Hydrobromide [CeleXA] 10 mg PO DAILY 07/27/15 09/18/24 History Fenofibrate 160 mg PO DAILY 07/27/15 09/18/24 History Furosemide [Lasix] 20 mg PO BID 07/27/15 09/18/24 History Metoprolol Tartrate 25 mg PO BID 07/27/15 09/18/24 History Pravastatin Sodium [Pravachol] 80 mg PO HS 07/27/15 09/18/24 History Apixaban [Eliquis] 2.5 mg PO BID 09/18/24 09/18/24 History Pantoprazole Sodium [Protonix] 40 mg PO DAILY 09/18/24 09/18/24 History Potassium Chloride [Klor-Con M10] 10 meq PO DAILY 09/18/24 09/18/24 History Tolterodine ER [Detrol LA] 4 mg PO DAILY 09/18/24 09/18/24 History allopurinoL 100 mg PO DAILY 09/18/24 09/18/24 History traZODone HCL 100 mg PO HS 09/18/24 09/18/24 History Allergies Allergy/AdvReac Type Severity Reaction Status Date / Time seafood Allergy Dyspnea Uncoded 09/18/24 17:16 Physical Exam Vitals: Vital Signs Temp Pulse Pulse Resp BP BP Pulse Ox 09/19/24 03:54 73 18 97/54 95 09/18/24 23:40 73 18 104/61 95 09/18/24 21:28 98.0 F 72 18 126/60 95 09/18/24 20:52 98.6 F 69 19 94/66 93 L 09/18/24 18:45 69 17 110/49 93 L 09/18/24 18:00 70 18 98/57 93 L 09/18/24 17:30 95 17 97/60 94 L 09/18/24 17:00 107 H 88/66 92 L 09/18/24 16:49 115 H 96/66 09/18/24 16:30 146 H 91/63 09/18/24 16:18 146 H 84/63 95 09/18/24 15:40 146 H 17 83/60 94 L 09/18/24 14:47 149 H 85/62 93 L 09/18/24 14:38 149 H 09/18/24 14:12 97.3 F L 40 L 18 90/37 95 Intake and Output 09/18/24 09/19/24 09/19/24 22:59 06:59 14:59 Intake Total 50.841 Balance 50.841 Intake: Intake, IV Titration 50.841 Amount Heparin Sodium,Porcine/ 50.841 D5w 25,000 unit In Empty Bag 1 bag @ 12 UNIT/KG/HR 6.532 mls/hr IV .Q24H [facility] Rx#:[id number] Other: Voiding Method Diaper Diaper # Voids 1 Weight 54.431 kg 67 kg Results 09/19/24 07:25 09/19/24 07:25 Cardiac Enzymes 09/18/24 09/18/24 09/18/24 Range/Units 14:58 14:58 18:17 AST 50 H (14-36) U/L Troponin I 0.019 0.036 H* (0.000-0.034) ng/mL 09/19/24 Range/Units 01:28 AST (14-36) U/L Troponin I 0.096 H* (0.000-0.034) ng/mL Coagulation 09/18/24 09/19/24 Range/Units 14:58 01:28 PT 13.3 H (10.0-12.5) sec APTT 24.8 >200.0 H* (22.0-30.0) sec CBC 09/18/24 Range/Units 14:58 WBC 13.28 H (4.50-10.00) 10*3/uL RBC 4.77 (4.10-5.20) 10*6/uL Hgb 15.0 (12.0-15.0) g/dL Hct 43.0 (37.2-46.3) % Plt Count 160 (140-440) 10*3/uL Comprehensive Metabolic Panel 09/18/24 Range/Units 14:58 Sodium 137 (137-145) mmol/L Potassium 4.4 (3.5-5.1) mmol/L Chloride 102 (98-107) mmol/L Carbon Dioxide 20 L (22-30) mmol/L BUN 21 H (7-17) mg/dL Creatinine 1.07 H (0.52-1.04) mg/dL Glucose 140 H (74-99) mg/dL Calcium 10.2 (8.4-10.2) mg/dL AST 50 H (14-36) U/L ALT 18 (4-34) U/L Alkaline Phosphatase 52 (38-126) U/L Total Protein 6.5 (6.3-8.2) g/dL Albumin 4.2 (3.5-5.0) g/dL Current Medications Generic Name Dose Route Start Last Admin Trade Name Freq PRN Reason Stop Dose Admin Heparin Sodium (Porcine) 0 unit 09/18/24 17:01 Heparin Sodium 1,000 Un/Ml (10ml Vl) IV PER PROTOCOL PRN Low PTT Protocol Heparin Sodium/Dextrose 25,000 250 mls @ 6.532 mls/hr 09/18/24 17:15 09/19/24 04:40 unit/ IV Solution IV 8 unit/kg/hr .Q24H [facility] 4.354 mls/hr Titration Protocol 12 UNIT/KG/HR Ceftriaxone Sodium 2 gm/ 50 mls @ 100 mls/hr 09/18/24 21:00 09/18/24 21:41 Sodium Chloride IVPB 100 mls/hr Q24H [facility] Administration Protocol Naloxone HCl 0.2 mg 09/18/24 15:41 Naloxone 0.4 Mg/Ml 1 Ml Vial IV Q2M PRN Opioid Reversal Ondansetron HCl 4 mg 09/18/24 15:41 Ondansetron 4 Mg/2 Ml Vial IVP Q8HR PRN Nausea And Vomiting Pantoprazole Sodium 40 mg 09/18/24 15:45 09/18/24 16:37 Pantoprazole 40 Mg/10 Ml Vial IV 40 mg DAILY EDEL Administration Intake and Output 09/18/24 09/19/24 09/19/24 22:59 06:59 14:59 Intake Total 50.841 Balance 50.841 Intake: Intake, IV Titration 50.841 Amount Heparin Sodium,Porcine/ 50.841 D5w 25,000 unit In Empty Bag 1 bag @ 12 UNIT/KG/HR 6.532 mls/hr IV .Q24H [facility] Rx#:[id number] Other: Voiding Method Diaper Diaper # Voids 1 Weight 54.431 kg 67 kg 09/18/24 14:58 09/18/24 14:58
--- NOTE | 2024-09-19 11:05 | CA ---
Transthoracic Echo Report Name: Robyn Aj Age: 83 Gender: F : 1940 Exam Date: 09/19/2024 08:57 Exam Location: [facility] Ht (in): Wt (lb): Ordering Physician: Ravin Kellogg MD Attending/Referring Phys: Offset Printer Mejia Rios RDCS Procedure CPT: Indications: afib Cardiac Hx: Technical Quality: Fair Contrast 1: Definity Total Dose (mL): 2 Contrast 2: Total Dose (mL): MEASUREMENTS (Male / Female) Normal Values 2D ECHO LV Diastolic Diameter PLAX 4.6 cm 4.2 - 5.9 / 3.9 - 5.3 cm LV Systolic Diameter PLAX 3.6 cm IVS Diastolic Thickness 0.9 cm 0.6 - 1.0 / 0.6 - 0.9 cm LVPW Diastolic Thickness 0.9 cm 0.6 - 1.0 / 0.6 - 0.9 cm LV Relative Wall Thickness 0.4 RV Internal Dim ED PLAX 1.6 cm LVOT Diameter 1.8 cm LV Diastolic Volume MOD BP 38.1 cm??? 67 - 155 / 56 - 104 cm??? LV Systolic Volume MOD BP 18.0 cm??? 22 - 58 / 19 - 49 cm??? LV Ejection Fraction MOD BP 52.6 % >= 55 % LV Diastolic Volume MOD 4C 33.0 cm??? LV Systolic Volume MOD 4C 15.5 cm??? LV Ejection Fraction MOD 4C 53.0 % LV Diastolic Length 4C 5.8 cm LV Systolic Length 4C 5.1 cm LV Diastolic Volume MOD 2C 36.8 cm??? LV Systolic Volume MOD 2C 15.6 cm??? LV Ejection Fraction MOD 2C 57.6 % LV Diastolic Length 2C 4.8 cm LV Systolic Length 2C 3.8 cm LA Volume 65.9 cm??? 18 - 58 / 22 - 52 cm??? M-MODE Aortic Root Diameter MM 2.6 cm LA Systolic Diameter MM 4.2 cm LA Ao Ratio MM 1.6 AV Cusp Separation MM 0.9 cm DOPPLER AV Peak Velocity 161.4 cm/s AV Peak Gradient 10.4 mmHg AV Mean Velocity 120.3 cm/s AV Mean Gradient 6.3 mmHg AV Velocity Time Integral 38.3 cm AI Peak Velocity 209.9 cm/s AI Peak Gradient 17.6 mmHg AI Pressure Half Time 376.1 ms LVOT Peak Velocity 76.8 cm/s LVOT Peak Gradient 2.4 mmHg LVOT Velocity Time Integral 14.9 cm LVOT Stroke Volume 37.9 cm??? AV Area Cont Eq vti 1.0 cm??? AV Area Cont Eq pk 1.2 cm??? MV Peak Velocity 177.6 cm/s MV Peak Gradient 12.6 mmHg MV Mean Velocity 115.6 cm/s MV Mean Gradient 6.0 mmHg MV Velocity Time Integral 43.2 cm MR Peak Velocity 563.1 cm/s MR Peak Gradient 126.8 mmHg TR Peak Velocity 305.3 cm/s TR Peak Gradient 37.3 mmHg Right Ventricular Systolic Press 40.8 mmHg PI Peak Gradient 27.9 mmHg FINDINGS Left Ventricle Left ventricular ejection fraction is estimated at 55 to 60 %.Normal left ventricular systolic function with no obvious regional wall motion abnormalities. Left ventricular cavity size normal. Right Ventricle Mild pulmonary hypertension.normal right ventricular size. Right Atrium Severe right atrial dilatation. Left Atrium Moderately increased left atrial volume. No left atrial thrombus or mass present. Mitral Valve Bioprosthetic mitral valve, mean MV PG 6 mmHg. Moderate prosthetic mitral valve regurgitation. Aortic Valve Bioprosthetic aortic valve, mean MV PG 6.3 mmHg. Gradient recorded across the prosthetic aortic valve within the expected range. Moderate regurgitation of the aortic valve. Tricuspid Valve Structurally normal tricuspid valve. No tricuspid stenosis. Moderate tricuspid regurgitation. Pulmonic Valve No pulmonic stenosis. Mild to moderate pulmonic regurgitation with 2 jets. Pericardium Small to moderate pericardial effusion. No pleural effusion. Aorta Normal size aortic root and proximal ascending aorta. CONCLUSIONS 1. Normal left ventricular size and systolic function 2. Bioprosthetic mitral valve with moderate mitral regurgitation 3. Bioprosthetic aortic valve with moderate aortic regurgitation and peak gradient of 6 mmHg 4. Moderate tricuspid regurgitation with mild pulmonary hypertension 5. Mild to moderate pericardial effusion Previewed by: Dr. Alexandra Bates MD (Electronically Signed) Final Date: 19 September 2024 11:04
[2024-09-19 16:34] LABS: Glucose,Whole Blood 132 mg/dL (70-110)
[2024-09-19] MEDS: POTASSIUM CHLORIDE ER 20 MEQ TAB.ER PO SCH (16:40)
[2024-09-19] MEDS: PRAVASTATIN SODIUM 80 MG TAB PO SCH (20:10)
[2024-09-20 07:11] LABS: Basophils # (A) 0.03 10*3/uL (0.00-0.10); Basophils % (A) 0.4 %; Eosinophils # (A) 0.10 10*3/uL (0.04-0.35); Eosinophils % (A) 1.4 %; HCT 37.7 % (37.2-46.3); HGB 12.6 g/dL (12.0-15.0); Lymphocytes # (A) 1.85 10*3/uL (0.90-5.00); Lymphocytes % (A) 26.2 %; MCH 31.1 pg (27.0-32.0); MCHC 33.4 g/dL (32.0-37.0); MCV 93.1 fL (80.0-97.0); Monocytes # (A) 0.56 10*3/uL (0.20-1.00); Monocytes % (A) 7.9 %; Neutrophils # (A) 4.51 10*3/uL (1.80-7.70); Neutrophils % (A) 63.8 %; Platelet Count 122 10*3/uL (140-440); RBC 4.05 10*6/uL (4.10-5.20); RDW 13.4 % (11.5-14.5); WBC 7.07 10*3/uL (4.50-10.00)
[2024-09-20 07:34] LABS: African American GFR (CKD) 87 (>60 ml/min/1.73 sqM); Anion Gap 6 mmol/L; Blood Urea Nitrogen 14 mg/dL (7-17); Calcium 9.6 mg/dL (8.4-10.2); Carbon Dioxide 29 mmol/L (22-30); Chloride 104 mmol/L (98-107); Glucose 88 mg/dL (74-99); Non-African American GFR(CKD) 76 (>60 ml/min/1.73 sqM); Potassium 3.8 mmol/L (3.5-5.1); Sodium 139 mmol/L (137-145)
[2024-09-20] MEDS: POTASSIUM CHLORIDE ER 20 MEQ TAB.ER PO SCH (07:39)
[2024-09-20 07:43] VITALS: RESP 17; TEMP 97.9
--- NOTE | 2024-09-20 10:14 | P.PN ---
Subjective Progress Note Date: 09/20/24 Consult reason: atrial fibrillation History of present illness: This is an 83-year-old female patient of Dr. Bates with past medical history of atrial tachycardia, aortic valve replacement and mitral valve replacement, CAD, mixed hyperlipidemia, diabetes mellitus type 2. We have been asked to evaluate the patient for A-fib with RVR. Patient states that she went to her regularly scheduled appointment with Dr. Lopez and was found to be tachycardic in the 150s and was sent into the hospital for further evaluation. Patient's states that he is also concerned as she has not been eating and drinking and has no strength. Blood pressure 91/48, heart rate 80, pulse ox 95% on room air. Patient is status post Cardizem bolus 15 mg IV push, IV Lopressor 5 mg, heparin drip, magnesium replacement, 2 and half liters IV fluid bolus. Patient states that she is feeling better today. -EKG: Atrial tachycardia versus typical atrial flutter 150 bpm, #2 sinus rhythm at 70 bpm. -Chest x-ray: Chronic changes without acute process. -Laboratory studies: Troponin 0.019, 0.036, 0.096. WBC initially 13.2 on repeat 6.1, hemoglobin 9.1, sodium 135, potassium 3.2, BUN 19 creatinine 0.84. proBNP 2260. TSH 7.27 with normal free T4 of 2.19. Urinalysis possible UTI. -Home cardiac medications: Eliquis 2.5 mg twice daily, fenofibrate 160 mg daily, Lasix 20 mg twice daily, metoprolol tartrate 25 mg twice daily, potassium chloride 10 mill equivalents daily, pravastatin 80 mg at bedtime. -Cardiac catheterization performed 2011 revealed EF 42%, 40% proximal RCA, 4+ aortic and mitral valve regurgitation. -Cardiovascular surgery tissue AVR and tissue MVR 2011 -Echocardiogram performed 03/23/2024 revealed EF 52%, moderate TR, bioprosthetic aortic and mitral valve replacement. -Event monitor February 2024 revealed sinus rhythm with episodes of atrial tac hycardia 2:1. -Lexiscan stress test performed 2022 revealed normal EF, normal study. 09/20/2024 Patient is seen today on the cardiac stepdown unit. She is feeling much more like herself today. Family is very concerned about her generalized weakness which has been somewhat chronic. Patient states that she is hoping to go home today. Patient is currently sinus rhythm running 97 bpm, blood pressure 115/69, pulse ox 95% on room air. Repeat blood work reveals hemoglobin 12.6, creatinine 0.73, potassium 3.8. Echocardiogram reveals normal left ventricular size and systolic function. Bioprosthetic mitral valve with moderate mitral regurgitation. Bioprosthetic aortic valve with moderate aortic regurgitation and peak gradient of 6 mmHg. Moderate tricuspid regurgitation with mild pulmonary hypertension. Mild to moderate pericardial effusion.. Physical examination: Gen: This is an 83-year-old female in no acute distress VS: reviewed HEENT: Head is atraumatic, normocephalic. Pupils equal, round. Sclerae is anicteric. NECK: Supple. No JVD. LUNGS: Clear to auscultation. No wheezes or rhonchi. No intercostal retractions. HEART: Regular rate and rhythm. 4/6 systolic ejection murmur at the right sternal border and 2/6 systolic murmur at the apex. ABDOMEN: Soft No tenderness. EXTREMITIES: No pedal edema. No calf tenderness. NEUROLOGICAL: Patient is awake, alert and oriented x3. Assessment: Atrial tachycardia most likely versus typical atrial flutter Elevated troponin secondary to tachycardia UTI Aortic valve replacement and mitral valve replacement CAD, nonobstructive Mixed hyperlipidemia Diabetes mellitus type 2 Plan: Continue patient's home cardiac medications Patient is cleared for discharge from a cardiology perspective. Patient will follow-up in the office with Dr. Bates in 1 week. Nurse practitioner note has been reviewed, I agree with documented findings and plan of care. Patient was seen and examined. Objective - Vital Signs Vital signs: Vital Signs Temp 97.9 F 09/20/24 07:21 Pulse 89 09/20/24 07:21 Resp 17 09/20/24 07:21 BP 115/69 09/20/24 07:21 Pulse Ox 95 09/20/24 07:21 FiO2 Intake & Output 09/19/24 09/20/24 09/20/24 18:59 06:59 18:59 Intake Total 620 10 Balance 620 10 Intake: IV 20 10 Invasive Line 1 20 10 Oral 600 Other: Voiding Method Diaper Diaper # Voids 2 # Bowel Movements 1 - Labs CBC & Chem 7: 09/20/24 06:19 09/20/24 06:19 Labs: Abnormal Lab Results - Last 24 Hours (Table) 09/19/24 09/19/24 09/20/24 Range/Units 07:25 16:32 06:19 RBC 4.05 L (4.10-5.20) 10*6/uL Plt Count 122 L (140-440) 10*3/uL Sodium 135 L (137-145) mmol/L Potassium 3.2 L (3.5-5.1) mmol/L BUN 19 H (7-17) mg/dL Glucose 107 H (74-99) mg/dL POC Glucose (mg/dL) 132 H (70-110) mg/dL AST 48 H (14-36) U/L Alkaline Phosphatase 36 L (38-126) U/L Total Protein 4.7 L (6.3-8.2) g/dL Albumin 2.6 L (3.5-5.0) g/dL
[2024-09-20 12:48] VITALS: PULSE 84
--- NOTE | 2024-09-20 14:18 | P.DS ---
Providers Date of admission: 09/18/24 15:34 Expected date of discharge: 09/20/24 Attending physician: Ravin Kellogg Consults: 09/18/24 15:41 Consult Physician Routine Consulting Provider: Alexandra Bates Consult Reason/Comments: AfibRVR Do you want consulting provider notified?: Yes Primary care physician: Larry Lopez Hospital Course: Discharge Diagnosis: Atrial tachycardia Uncomplicated UTI Hyperlipidemia Aortic and mitral valve replacement Hospital Course: 83-year-old female with past medical history of atrial tachycardia, aortic valve replacement and mitral valve replacement, CAD, mixed hyperlipidemia, diabetes mellitus type 2, presented to ED due to tachycardia discovered at PCP appt and was instructed to go to ER. EKG at admission evident for atrial tachycardia with 150 bpm, cardio was consulted to evaluate patient. Blood pressure on admission was 90/37, pt. received 2.5L bolus IV fluids, patient BP increased. Patient tachycardia was treated with Cardizem bolus. White blood cell admission was 13.28. Chest x-ray was consistent with chronic changes no acute process, troponins were 0.012, 0.036, 0.096, correlate with tachycardia. proBNP was 2260. Cardio did not repeat echocardiogram performed 03/23/2024 revealed ejection fraction of 52%, with aortic and mitral valve replacement. Urinalysis showed positive leukocyte esterase, Rocephin was initiated and patient received 2 days in total. Patient will be transitioned to Ceftin 500 mg twice daily x 1 day. Patient will follow-up with PCP in 1 to 3 days. Patient was recommended to go to rehab due to weakness but family at bedside decided they will take her home with visiting nurse. Patient medically stable for discharge. Vital signs reviewed and stable. Physical examination: Vital signs reviewed General: non toxic, no distress, appears at stated age, normal weight Head: atraumatic, normocephalic, symmetric Mouth: no lip lesion, mucus membranes moist Cardiovascular: Systolic ejection murmur at right sternal border and systolic murmur at the apex Lungs: CTA bilateral, no rhonchi, no rales Abdominal: soft, nontender to palpation, no guarding Extremities: no edema, 3/5 muscle strength Psych: Alert, oriented but tends to forget mid conversation Quinn Jain MD PGY-1 FM Dictation was produced using [employer] software. please excuse any grammatical, word or spelling errors. Attestation: I have personally seen and examined the patient with Resident, reviewed the documentation and participated and agree with the assessment and plan as written. Alpesh Johnson MD Patient Condition at Discharge: Stable Plan - Discharge Summary Discharge Rx Participant: No New Discharge Prescriptions: No Action Fenofibrate 160 mg PO DAILY Metoprolol Tartrate 25 mg PO BID Pravastatin Sodium [Pravachol] 80 mg PO HS Furosemide [Lasix] 20 mg PO BID Citalopram Hydrobromide [CeleXA] 10 mg PO DAILY Tolterodine ER [Detrol LA] 4 mg PO DAILY Pantoprazole Sodium [Protonix] 40 mg PO DAILY allopurinoL 100 mg PO DAILY Potassium Chloride [Klor-Con M10] 10 meq PO DAILY Apixaban [Eliquis] 2.5 mg PO BID traZODone HCL 100 mg PO HS Discharge Medication List Citalopram Hydrobromide [CeleXA] 10 mg PO DAILY 07/27/15 [History] Fenofibrate 160 mg PO DAILY 07/27/15 [History] Furosemide [Lasix] 20 mg PO BID 07/27/15 [History] Metoprolol Tartrate 25 mg PO BID 07/27/15 [History] Pravastatin Sodium [Pravachol] 80 mg PO HS 07/27/15 [History] Apixaban [Eliquis] 2.5 mg PO BID 09/18/24 [History] Pantoprazole Sodium [Protonix] 40 mg PO DAILY 09/18/24 [History] Potassium Chloride [Klor-Con M10] 10 meq PO DAILY 09/18/24 [History] Tolterodine ER [Detrol LA] 4 mg PO DAILY 09/18/24 [History] allopurinoL 100 mg PO DAILY 09/18/24 [History] traZODone HCL 100 mg PO HS 09/18/24 [History] Follow up Appointment(s)/Referral(s): Alexandra Bates MD [STAFF PHYSICIAN] - 1 Week Larry Lopez MD [Primary Care Provider] - 1-2 days [facility] Visiting Nurse, [NON-STAFF] - Patient Instructions/Handouts: A-fib (Atrial Fibrillation) (DC), Bleeding Disorders (DC), Blood Thinners (DC) Discharge Disposition: HOME SELF-CARE
[2024-09-20] MEDS: CEFDINIR 300 MG CAP PO SCH (16:31)
[2024-09-20 19:40] VITALS: BP 132/62
--- NOTE | 2024-09-23 08:27 | PN ---
PROGRESS NOTE DATE OF SERVICE: 09/19/2024 SUBJECTIVE: This is an 83-year-old woman who was admitted with tachycardia, was initially a wide- complex, but apparently she had atrial flutter with fast ventricular rate. Cardiology is following the patient closely. A 2D echo with Doppler, which I reviewed personally showed normal ejection fraction and bioprosthetic mitral with moderate mitral regurgitation . Bioprosthetic aortic valve with moderate aortic regurgitation and moderate tricuspid regurgitation also. No chest pain, no palpitation. PHYSICAL EXAMINATION: VITAL SIGNS: Pulse is 70, blood pressure respirations 18. HEENT: Conjunctivae normal CARDIOVASCULAR: S1, S2 LABORATORY DATA: Reviewed. Assessment: Potassium 3.2. REVIEW OF SYSTEMS: 14-point review is negative. MEDICATIONS: Current medications reviewed. ASSESSMENT: 1. Tachycardia, possibly atrial flutter fibrillation with fast ventricular rate versus wide-complex QRS tachycardia on presentation. 2. Multivalvular disease with bioprosthetic mitral valve with moderate mitral regurgitation and bioprosthetic aortic valve with moderate aortic regurgitation and moderate tricuspid regurgitation with pulmonary hypertension. 3. Troponin elevated up to 0.096 in treatment, unknown etiology. 4. Possible urinary tract infection present on admission. 5. Hyponatremia. 6. Hypokalemia. 7. History of asthma. 8. Hyperlipidemia. RECOMMENDATION: This 83-year-old woman presented with multiple complex medical issues. We will monitor the patient closely. Continue the current management and treatment. Otherwise, I would also add broad-spectrum IV antibiotics empirically and obtain the cultures. Other than that, the patient is on beta blockers closely with Cardiology. Prognosis guarded because of multiple complex conditions. 2D echo reviewed. Repeat labs will be ordered tomorrow. MMODL / IJN: [id number] /
== END 2024-09-20 18:19 | disposition home or self-care (01) | DRG 309 ==
LOC: EC 14:07 → 3SCARD 15:34
PROVIDERS: ADMIT Hospitalist; ATTEND Hospitalist
PROC: 3E033RZ Introduction of Antiarrhythmic into Peripheral Vein, Percutaneous Approach (ICD-10-PCS; principal; 2024-09-18)
DX: I47.19 Other supraventricular tachycardia (principal); E87.1 Hypo-osmolality and hyponatremia; I27.20 Pulmonary hypertension, unspecified; Z95.3 Presence of xenogenic heart valve; E11.9 Type 2 diabetes mellitus without complications; J45.909 Unspecified asthma, uncomplicated; N39.0 Urinary tract infection, site not specified; E87.6 Hypokalemia; I08.3 Combined rheumatic disorders of mitral, aortic and tricuspid valves; R79.89 Other specified abnormal findings of blood chemistry; G43.909 Migraine, unspecified, not intractable, without status migrainosus; L40.9 Psoriasis, unspecified; F41.0 Panic disorder [episodic paroxysmal anxiety]; I25.10 Atherosclerotic heart disease of native coronary artery without angina pectoris; E78.2 Mixed hyperlipidemia; Z85.820 Personal history of malignant melanoma of skin; Z79.899 Other long term (current) drug therapy; Z79.01 Long term (current) use of anticoagulants
CPT/HCPCS: 36415; 71045; 80048; 80053; 81001; 83605; 83735; 83880; 84100; 84439; 84443; 84484; 85025; 85610; 85730; 87493; 93005; 93306; 96365; 96366; 96367; 96375; 99291